=== PATIENT | female | born 1985 | race Caucasian/White ===

== ENCOUNTER → 2016-05-26 | Outpatient (CLI) | payer OTHER ==
--- NOTE | 2016-05-26 16:28 | REP ---
Left elbow series: Four views: History: Pain. Findings: Four views of the left elbow demonstrate normal bones, joints, and soft tissues. No fracture, subluxation, or joint effusion is seen. Impression: Negative left elbow series. Signed by Ernesto Santo MD 05/26/2016 04:48 P
--- NOTE | 2016-05-26 16:37 | REP ---
Lumbar spine series: Five views. History: Low back pain. Comparison study: October 19, 2015. Findings: There are multiple rounded calcifications in the upper abdomen in a pattern suggesting pancreatic distribution or conceivably bilateral renal distribution. These are unchanged. They may reflect chronic pancreatitis changes. The bowel gas pattern is unremarkable. No other pathologic calcification is seen. Lumbar vertebral body heights are preserved. There is mild disc space narrowing at L4-5, unchanged. Other disc spaces are maintained. Alignment is normal. Pedicles and posterior elements are intact. There is no evidence of spondylolysis or spondylolisthesis. Sacrum and SI joints are unremarkable. Impression: Bilateral upper abdominal calcifications, question pancreatic calcifications from chronic pancreatitis. Degenerative disc changes at L4-5. No significant change from the prior study of October 19, 2015. Signed by Ernesto Santo MD 05/26/2016 04:49 P
--- NOTE | 2016-05-26 16:58 | REP ---
Left wrist series: Five views. History: Left wrist pain. Findings: Five views of the left wrist are obtained including a scaphoid view. These show normal bones, joints and soft tissues. Impression: Negative left wrist views. Signed by Ernesto Santo MD 05/26/2016 05:02 P
== END ==
LOC: M LRY 14:14
PROVIDERS: ATTEND Family Medicine
DX: M25.532 Pain in left wrist (principal); M51.36 Other intervertebral disc degeneration, lumbar region
CPT/HCPCS: 72110; 73080; 73110; G0463

== ENCOUNTER → 2016-06-09 | Outpatient (CLI) | payer OTHER ==
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
== END ==
LOC: M LRY 10:50
PROVIDERS: ATTEND Family Medicine
DX: M25.532 Pain in left wrist (principal)